=== PATIENT | female | born 1960 | race Caucasian/White ===

== ENCOUNTER 2016-11-02 17:21 | Emergency (ER) | payer OTHER ==
[~2016-11-02] VITALS: Ht 154.9 cm; Wt 63.5 kg
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
[2016-11-02 21:09] VITALS: BP 150/86
== END 2016-11-02 21:13 ==
LOC: ERH 17:21
DX: T26.91XA Corrosion of right eye and adnexa, part unspecified, initial encounter (principal); T65.91XA Toxic effect of unspecified substance, accidental (unintentional), initial encounter; Y93.9 Activity, unspecified; Y92.9 Unspecified place or not applicable